=== PATIENT | female | born 1980 | race Caucasian/White ===

== ENCOUNTER 2021-12-20 11:46 | Emergency (ER) | payer OTHER ==
[2021-12-20 12:10] VITALS: BP 127/63; PULSE 66; O2SAT 100
--- NOTE | 2021-12-20 12:22 | ERPHSYRPT ---
- History of Present Illness Time Seen by Provider: 12/20/21 12:19 Source: patient Exam Limitations: no limitations Patient Subjective Stated Complaint: "I stepped in a ditch at work yesterday and heard my right foot pop" Triage Nursing Assessment: [id number] walked in, c/o pain/bruising to right foot. Patient states she was at work yesterday and stepped in a ditch and heard "pop" in her left foot and started having pain. Brusing to top of foot at base of toes noted. Denies other injuries. Distal neuro/vascular intact. Physician History: This is a 41-year-old white female who stepped in a ditch [place] and believe felt and heard a pop on the dorsal aspect of her right foot. There was pain. Patient went home and iced the foot and elevated it per her report. In the morning she still has pain and there is now bruising present. Method of Injury: other (Ripped in a ditch) Occurred: yesterday Quality: constant, aching Severity of Pain-Max: moderate Severity of Pain-Current: moderate Lower Extremities Pain: foot: right (Dorsal aspect distal metatarsal region ecchymosis) Modifying Factors: Improves With: movement Associated Symptoms: popping sensation (At the time of the initial injury yesterday), other (Hurts to bear weight) Immunizations Up to Date: Yes Travel Risk - International Travel Have you traveled outside of the country in past 3 weeks: No - Coronavirus Screening Are you exhibiting any of the following symptoms?: No Close contact with a COVID-19 positive Pt in past 14-21 Days: No - Vaccine Status Have you recieved a Covid-19 vaccination: Yes 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: [employer] - Vaccination Dates Date of 2cond Vaccination (if applicable): 2020 - Review of Systems Constitutional: No Symptoms Eyes: No Symptoms Ears, Nose, & Throat: No Symptoms Respiratory: No Symptoms Cardiac: No Symptoms Abdominal/Gastrointestinal: No Symptoms Genitourinary Symptoms: No Symptoms Musculoskeletal: Injury (Right foot) Skin: No Symptoms Neurological: No Symptoms Psychological: No Symptoms Endocrine: No Symptoms Hematologic/Lymphatic: No Symptoms Immunological/Allergic: No Symptoms All Other Systems: Reviewed and Negative - Past Medical History Pertinent Past Medical History: Yes Neurological History: No Pertinent History ENT History: No Pertinent History Cardiac History: Other Endocrine Medical History: Hypothyroidism Musculoskeletal History: No Pertinent History GI Medical History: No Pertinent History History: No Pertinent History Psycho-Social History: Depression Female Reproductive Disorders: No Pertinent History Other Medical History: tetrology of falot - Past Surgical History Past Surgical History: Yes (cardiac) Neuro Surgical History: No Pertinent History Cardiac: Other Respiratory: No Pertinent History Gastrointestinal: No Pertinent History Genitourinary: No Pertinent History Musculoskeletal: No Pertinent History Female Surgical History: No Pertinent History Other Surgical History: "open heart surgery due to tetrology of felot" - Social History Smoking Status: Current every day smoker How long have you smoked: 15 yrs Exposure to second hand smoke: Yes Drug Use: none Patient Lives Alone: No - Female History Hx Last Menstrual Period: hysterectomy Hx Now: No - Nursing Vital Signs Nursing Vital Signs: Initial Vital Signs Temperature 98.8 F 12/20/21 11:54 Pulse Rate 66 12/20/21 11:54 Respiratory Rate 18 12/20/21 11:54 Blood Pressure 127/63 12/20/21 11:54 O2 Sat by Pulse Oximetry 100 12/20/21 11:54 Pain Scale Pain Intensity 8 - Physical Exam General Appearance: no apparent distress, alert, anxiety Eyes, Ears, Nose, Throat Exam: normal ENT inspection, moist mucous membranes Neck Exam: normal inspection, non-tender, supple, full range of motion Cardiovascular/Respiratory Exam: chest non-tender, no respiratory distress Gastrointestinal/Abdominal Exam: non-tender Back Exam: normal inspection, normal range of motion, No CVA tenderness, No vertebral tenderness Hips Exam: bilateral: non-tender, normal inspection, normal range of motion, no evidence of injury Legs Exam: bilateral leg: non-tender, normal inspection, normal range of motion, no evidence of injury Knees Exam: bilateral knee: non-tender, normal inspection, normal range of motion, no evidence of injury Ankle Exam: bilateral ankle: non-tender, normal inspection, normal range of motion, no evidence of injury Foot Exam: right foot: bone tenderness, ecchymosis, soft tissue tenderness, swelling, left foot: non-tender, normal inspection, no evidence of injury, bilateral foot: normal range of motion Neuro/Tendon Exam: normal sensation, normal motor functions, normal tendon functions, responds to pain, no evidence tendon injury Mental Status Exam: alert, oriented x 3, cooperative Skin Exam: ecchymosis SpO2 Interpretation: normal (See above) SpO2: 100 O2 Delivery: Room Air - Course Nursing assessment & vital signs reviewed: Yes Ordered Tests: Active Orders 24 hr Category Date Time Status Jamie Bandage Application -[facility] STAT Care 12/20/21 13:12 Active Crutches STAT Care 12/20/21 13:11 Active FOOT (MINIMUM 3 VIEWS) Stat Exams 12/20/21 13:02 Taken - Progress Progress: improved, pain not gone completely Progress Note: 12/20/21 13:07 X-ray right foot shows no acute fracture or dislocation. Counseled pt/family regarding: diagnosis, need for follow-up, rad results - Departure Departure Disposition: Home Clinical Impression: Injury of right foot including toes Condition: Stable Critical Care Time: No Referrals: GURJIT BRITTON ENTOMOLOGY PROFESSOR [Primary Care Provider] - Follow up/PCP as directed Instructions: Contusion (DC), Foot Sprain (DC) Additional Instructions: Ice bath/pack to right foot 3 times a day for the next 48 hours. Weightbearing as tolerated. Follow-up with Dr. Disla (podiatry) or [facility]. The [facility] is Wednesday through Wednesday walk-in clinic between 8 AM and 10 AM. Add ibuprofen 600 mg orally with food 3 times a day for the next 5 days if there are no contraindications to using this medication. Prescriptions: Oxycodone HCl/Acetaminophen [Percocet 5-325 mg Tablet] 1 each PO Q8H PRN PRN #6 tablet MDD 3 PRN Reason: Moderate To Severe Pain
[2021-12-20] MEDS ORDERED: PERCOCET TABLET 5/325MG PO STA (13:13)
[2021-12-20] MEDS ORDERED: PERCOCET TABLET 5/325MG ONE (13:18)
--- NOTE | 2021-12-20 20:37 | XRAY ---
Indication: Pain following fall. Comparison: None 3 nonweightbearing views right foot obtained. No bony, articular, or soft tissue abnormalities.
== END 2021-12-20 13:27 | disposition home or self-care (01) ==
LOC: ED 11:46
DX: S99.921A Unspecified injury of right foot, initial encounter (principal); W18.42XA Slipping, tripping and stumbling without falling due to stepping into hole or opening, initial encounter; Y92.149 Unspecified place in prison as the place of occurrence of the external cause; Y99.0 Civilian activity done for income or pay; M79.671 Pain in right foot; Z79.891 Long term (current) use of opiate analgesic; Z72.0 Tobacco use
CPT/HCPCS: 73630; 99283; L4386; A9270-GY